=== PATIENT | male | born 1960 | race American Indian/Alaskan Native ===

== ENCOUNTER 2017-11-27 20:42 | Emergency (ER) | payer MEDICARE ==
[2017-11-27 20:55] VITALS: BP 100/70
--- NOTE | 2017-11-27 22:43 | XRay Report ---
FINAL REPORT PROCEDURE: XR HUMERUS 2+V RT TECHNIQUE: Right humerus, two views HISTORY: right humerus and elbow pain COMPARISON: No prior studies are available for comparison. FINDINGS: Sclerosis noted in the mid humeral shaft may be related to the deltoid insertion. No focal osseous lesion is seen. No acute fracture or dislocation is seen. IMPRESSION: Ill-defined focal sclerosis is noted in the mid humeral shaft, which may be related to the deltoid insertion. If there is progressive pain, follow-up radiograph or MRI could be obtained to exclude an other etiology for the sclerosis. No acute fracture is seen.
--- NOTE | 2017-11-28 00:58 | Emergency Department Report ---
ED Upper Extremity Inj HPI - General Chief Complaint: Extremity Injury, Upper Stated Complaint: A FALLING BED RAIL/ HIT WITH Time Seen by Provider: 11/27/17 23:51 Source: patient Mode of arrival: Ambulatory Limitations: No Limitations - History of Present Illness Initial Comments: Patient is a 57-year-old -[place] male who presents for right upper arm pain patient states bed rail fell from distance proximally 4-5 feet striking him on his posterior humerus pain and tenderness since is approximately 7 hours ago pain described as 5/10 aching soreness exacerbated by movement there is no numbness no tingling no deformity no swelling Complaint: Injury to:: right, arm Onset/Timin -: hour(s) Other Extremity Injury: Arm: Right Other Injuries: none Place: other (in store ) Severity scale (0 -10): 4 Improves With: none Worsens With: movement of extremity Context: direct blow Associated Symptoms: other (tenderness ) - Related Data Home Medications Medication Instructions Recorded Confirmed Last Taken Atenolol [Tenormin] 25 mg PO DAILY 11/14/14 11/14/14 11/13/14 Famotidine [Pepcid] 20 mg PO BID 11/14/14 11/14/14 11/09/14 Isosorbide Dinitrate 60 mg PO BID 11/14/14 11/14/14 11/13/14 Lisinopril 5 mg PO 11/14/14 11/14/14 11/13/14 Previous Rx's Medication Instructions Recorded Last Taken Type Naproxen [Naprosyn TAB] 500 mg PO BID #30 tablet 11/28/17 Unknown Rx Allergies Allergy/AdvReac Type Severity Reaction Status Date / Time No Known Allergies Allergy Verified 02/04/14 04:42 ED Review of Systems ROS: Stated complaint: A FALLING BED RAIL/ HIT WITH Other details as noted in HPI Constitutional: denies: chills, fever Eyes: denies: eye pain, eye discharge, vision change ENT: denies: ear pain, throat pain Respiratory: denies: cough, shortness of breath, wheezing Cardiovascular: denies: chest pain, palpitations Endocrine: no symptoms reported Gastrointestinal: denies: abdominal pain, nausea, diarrhea Genitourinary: denies: urgency, dysuria Musculoskeletal: myalgia. denies: back pain, joint swelling Skin: denies: rash, lesions Neurological: denies: headache, weakness, paresthesias Psychiatric: denies: anxiety, depression Hematological/Lymphatic: denies: easy bleeding, easy bruising ED Past Medical Hx - Past Medical History Hx Hypertension: Yes (2006 [facility]) Hx Heart Attack/AMI: Yes (2006) Additional medical history: irregular heart rate, high cholesterol - Surgical History Hx Coronary Stent: Yes (2006) Additional Surgical History: 2 cardiac stents 2006, hernia repair - Social History Smoking Status: Never Smoker Substance Use Type: None - Medications Home Medications: Home Medications Medication Instructions Recorded Confirmed Last Taken Type Atenolol [Tenormin] 25 mg PO DAILY 11/14/14 11/14/14 11/13/14 History Famotidine [Pepcid] 20 mg PO BID 11/14/14 11/14/14 11/09/14 History Isosorbide Dinitrate 60 mg PO BID 11/14/14 11/14/14 11/13/14 History Lisinopril 5 mg PO 11/14/14 11/14/14 11/13/14 History Naproxen [Naprosyn TAB] 500 mg PO BID #30 tablet 11/28/17 Unknown Rx ED Physical Exam - General Limitations: No Limitations General appearance: alert, in no apparent distress - Head Head exam: Present: atraumatic, normocephalic - Eye Eye exam: Present: normal appearance - ENT ENT exam: Present: mucous membranes moist - Neck Neck exam: Present: normal inspection - Respiratory Respiratory exam: Present: normal lung sounds bilaterally. Absent: respiratory distress - Cardiovascular Cardiovascular Exam: Present: regular rate, normal rhythm. Absent: systolic murmur, diastolic murmur, rubs, gallop - GI/Abdominal GI/Abdominal exam: Present: soft, normal bowel sounds. Absent: distended, tenderness, guarding, rebound, rigid, mass, bruit, pulsatile mass, hernia - Rectal Rectal exam: Present: deferred - Extremities Exam Extremities exam: Present: full ROM, tenderness (right posterior upper arm pain mild bruising ), normal capillary refill. Absent: pedal edema, joint swelling, calf tenderness - Expanded Upper Extremity Exam Right Shoulder Exam: Present: normal inspection, full ROM. Absent: tenderness, swelling Upper Arm exam: Present: full ROM, tenderness, ecchymosis. Absent: swelling, abrasion, laceration, deformity, crepidus, dislocation, erythema Elbow exam: Present: normal inspection, full ROM. Absent: tenderness, swelling , abrasion, laceration, ecchymosis, deformity, crepidus, dislocation, erythema, effusion, pain w/ pronation/supination, tenderness over radial head Forearm Wrist exam: Present: normal inspection, full ROM. Absent: tenderness Hand Wrist exam: Present: normal inspection, full ROM. Absent: tenderness Neuro motor exam: Present: wrist extension intact, thumb opposition intact, thumb IP flexion intact, thumb adduction intact, fingers 2-5 abduction intact Neurosensory exam: Present: 2-point discrimination, radial nerve intact, ulnar nerve intact, median nerve intact Vascular: Present: normal capillary refill, radial pulse, brachial pulse, ulnar pulse. Absent: vascular compromise, Pallo, pulse deficit radial art, pulse deficit ulnar art, pulse deficit brachial art - Back Exam Back exam: Present: normal inspection, full ROM. Absent: tenderness, CVA tenderness (R), CVA tenderness (L), muscle spasm, rash noted - Neurological Exam Neurological exam: Present: alert, oriented X3, CN II-XII intact, normal gait, reflexes normal. Absent: motor sensory deficit - Psychiatric Psychiatric exam: Present: normal affect, normal mood, anxious - Skin Skin exam: Present: warm, dry, intact, normal color. Absent: rash ED Course Vital Signs 11/27/17 20:50 Temperature 98.3 F Pulse Rate 90 Respiratory 18 Rate Blood Pressure 100/70 O2 Sat by Pulse 96 Oximetry ED Medical Decision Making - Radiology Data Radiology results: report reviewed, image reviewed Ill -defined focal sclerois is noteed in the mid-humeral lshaft no acute fracture. 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 ED Disposition Clinical Impression: Contusion, arm, upper Qualifiers: Encounter type: initial encounter Laterality: right Qualified Code(s): S40.021A - Contusion of right upper arm, initial encounter Disposition: DC-01 TO HOME OR SELFCARE Is pt being admited?: No Does the pt Need Aspirin: No Condition: Good Instructions: Contusion in Adults (ED) Prescriptions: Naproxen [Naprosyn TAB] 500 mg PO BID #30 tablet Referrals: YOUSUF SALDIVAR MD [Staff Physician] - 3-5 Days Forms: Work/School Release Form(ED) Time of Disposition: 01:04
== END 2017-11-28 00:54 | disposition home or self-care (01) ==
LOC: ED 20:42
DX: S40.021A Contusion of right upper arm, initial encounter (principal); I10 Essential (primary) hypertension; W06.XXXA Fall from bed, initial encounter; Y93.89 Activity, other specified; Y92.89 Other specified places as the place of occurrence of the external cause; Y99.8 Other external cause status
CPT/HCPCS: 99283

== ENCOUNTER 2018-11-17 19:16 | Emergency (ER) | payer MEDICARE ==
[2018-11-17 19:29] VITALS: BP 110/69
[2018-11-17] MEDS ORDERED: NACL 0.9% 1000 ML 1,000 ML IV ONE (19:51)
[2018-11-17] MEDS ORDERED: ZOFRAN IV ONE (19:51)
[2018-11-17] MEDS ORDERED: TORADOL IV ONE (19:51)
[2018-11-17 20:25] LABS: Basophils # (Auto) 0.1 K/mm3 (0.0-0.1); Basophils % (Auto) 1.5 % (0.0-1.8); Eosinophils # (Auto) 0.2 K/mm3 (0.0-0.4); Eosinophils % (Auto) 4.6 % (0.0-4.3); Hemoglobin 14.8 gm/dl (11.8-15.2); Lymphocytes # (Auto) 2.3 K/mm3 (1.2-5.4); Lymphocytes % (Auto) 49.4 % (13.4-35.0); Mean Corpuscular HGB Conc 34 % (32-34); Mean Corpuscular Volume 98 fl (84-94); Monocytes # (Auto) 0.4 K/mm3 (0.0-0.8); Monocytes % (Auto) 8.3 % (0.0-7.3); Platelet Count 234 K/mm3 (140-440); Red Cell Distribution Width 12.9 % (13.2-15.2)
[2018-11-17 20:35] LABS: Alanine Aminotransferase 11 units/L (7-56); Albumin 4.4 g/dL (3.9-5); BUN/Creatinine Ratio 11; Blood Urea Nitrogen 10 mg/dL (9-20); Calcium 8.7 mg/dL (8.4-10.2); Hemolysis Index 62
[2018-11-17 20:36] LABS: INR 1.07 (0.87-1.13)
[2018-11-17 20:37] LABS: Partial Thromboplastin Time 30.1 Sec. (24.2-36.6)
--- NOTE | 2018-11-17 20:59 | Emergency Department Report ---
ED Abdominal Pain HPI - General Chief Complaint: Abdominal Pain Stated Complaint: GAS PAIN Time Seen by Provider: 11/17/18 19:52 Source: patient Mode of arrival: Ambulatory Limitations: No Limitations - History of Present Illness Initial Comments: There is a 58 Emergency room presents for right upper quadrant pain radiating to back times one week with intermittent nausea vomiting history of GERD denies EtOH denies smoking does have a cardiac history does have a history of hypertension last bowel movement was yesterday there is no shortness of breath no dizziness no lightheadedness no rectal bleeding no bloody or tarry stools. Symptoms are temporarily relieved by Yeimi EPPS Complaint: abdominal pain Onset/Timin -: week(s) Location: RUQ Radiation: R flank Migration to: RUQ Severity: moderate Severity scale (0 -10): 6 Quality: aching Consistency: constant Improves With: other (maalox ) Worsens With: movement Associated Symptoms: nausea, vomiting - Related Data Home Medications Medication Instructions Recorded Confirmed Last Taken Atenolol [Tenormin] 50 mg PO DAILY 11/14/14 11/17/18 1 Day Ago ~11/16/18 Famotidine [Pepcid] 20 mg PO BID 11/14/14 11/17/18 1 Day Ago ~11/16/18 Isosorbide Dinitrate 60 mg PO BID 11/14/14 11/17/18 1 Day Ago ~11/16/18 Lisinopril 2.5 mg PO 11/14/14 11/14/14 11/17/18 Rivaroxaban [Xarelto] 15 mg PO QDAY 11/17/18 11/17/18 1 Day Ago ~11/16/18 Previous Rx's Medication Instructions Recorded Last Taken Type Naproxen 500 mg PO BID PRN #30 tablet 11/17/18 Unknown Rx Omeprazole 40 mg PO DAILY #30 capsule. 11/17/18 Unknown Rx Sucralfate [Carafate] 1 gm PO ACHS 7 Days #28 tablet 11/17/18 Unknown Rx Allergies Allergy/AdvReac Type Severity Reaction Status Date / Time No Known Allergies Allergy Verified 02/04/14 04:42 ED Review of Systems ROS: Stated complaint: GAS PAIN Other details as noted in HPI Constitutional: denies: chills, fever Eyes: denies: eye pain, eye discharge, vision change ENT: denies: ear pain, throat pain Respiratory: denies: cough, shortness of breath, wheezing Cardiovascular: denies: chest pain, palpitations Endocrine: no symptoms reported Gastrointestinal: abdominal pain, nausea, vomiting. denies: diarrhea, constipation, hematemesis, melena, hematochezia Genitourinary: denies: urgency, dysuria Musculoskeletal: back pain. denies: joint swelling, arthralgia Skin: denies: rash, lesions Neurological: denies: headache, weakness, paresthesias Psychiatric: denies: anxiety, depression Hematological/Lymphatic: denies: easy bleeding, easy bruising ED Past Medical Hx - Past Medical History Hx Hypertension: Yes (2006 [facility]) Hx Heart Attack/AMI: Yes (2006) Hx GERD: Yes Additional medical history: A-fib, high cholesterol - Surgical History Hx Coronary Stent: Yes (2006) Additional Surgical History: 2 cardiac stents 2006, hernia repair - Social History Smoking Status: Never Smoker Substance Use Type: None - Medications Home Medications: Home Medications Medication Instructions Recorded Confirmed Last Taken Type Atenolol [Tenormin] 50 mg PO DAILY 11/14/14 11/17/18 1 Day Ago History ~11/16/18 Famotidine [Pepcid] 20 mg PO BID 11/14/14 11/17/18 1 Day Ago History ~11/16/18 Isosorbide Dinitrate 60 mg PO BID 11/14/14 11/17/18 1 Day Ago History ~11/16/18 Lisinopril 2.5 mg PO 11/14/14 11/14/14 11/17/18 History Naproxen 500 mg PO BID PRN #30 tablet 11/17/18 Unknown Rx Omeprazole 40 mg PO DAILY #30 capsule. 11/17/18 Unknown Rx Rivaroxaban [Xarelto] 15 mg PO QDAY 11/17/18 11/17/18 1 Day Ago History ~11/16/18 Sucralfate [Carafate] 1 gm PO ACHS 7 Days #28 tablet 11/17/18 Unknown Rx ED Physical Exam - General Limitations: No Limitations General appearance: alert, in no apparent distress - Head Head exam: Present: atraumatic, normocephalic - Eye Eye exam: Present: normal appearance, PERRL, EOMI Pupils: Present: normal accommodation - ENT ENT exam: Present: mucous membranes moist - Neck Neck exam: Present: normal inspection, full ROM. Absent: lymphadenopathy, thyromegaly - Respiratory Respiratory exam: Present: normal lung sounds bilaterally. Absent: respiratory distress, wheezes, stridor, chest wall tenderness - Cardiovascular Cardiovascular Exam: Present: regular rate, normal rhythm, normal heart sounds. Absent: systolic murmur, diastolic murmur, rubs, gallop - GI/Abdominal GI/Abdominal exam: Present: soft, tenderness (RUQ ), normal bowel sounds. Absent: guarding, rebound, bruit, hernia - Rectal Rectal exam: Present: deferred - Extremities Exam Extremities exam: Present: normal inspection - Back Exam Back exam: Present: normal inspection. Absent: full ROM, tenderness, CVA tenderness (R), CVA tenderness (L), muscle spasm, paraspinal tenderness, vertebral tenderness, rash noted - Neurological Exam Neurological exam: Present: alert, oriented X3 - Psychiatric Psychiatric exam: Present: normal affect, normal mood - Skin Skin exam: Present: warm, dry, intact, normal color. Absent: rash ED Course Vital Signs 11/17/18 19:25 Temperature 97.8 F Pulse Rate 88 Respiratory 16 Rate Blood Pressure 110/69 O2 Sat by Pulse 100 Oximetry ED Medical Decision Making - Lab Data Result diagrams: 11/17/18 Unknown 11/17/18 Unknown Labs 11/17/18 11/17/18 11/17/18 21:08 Unknown Unknown WBC 4.7 RBC 4.50 Hgb 14.8 Hct 44.0 MCV 98 H MCH 33 H MCHC 34 RDW 12.9 L Plt Count 234 Lymph % (Auto) 49.4 H Kay % (Auto) 8.3 H Eos % (Auto) 4.6 H Baso % (Auto) 1.5 Lymph # 2.3 Kay # 0.4 Eos # 0.2 Baso # 0.1 Seg Neutrophils % 36.2 L Seg Neutrophils # 1.7 L PT 14.3 INR 1.07 APTT 30.1 Sodium Potassium Chloride Carbon Dioxide Anion Gap BUN Creatinine Estimated GFR BUN/Creatinine Ratio Glucose Calcium Total Bilirubin AST ALT Alkaline Phosphatase Total Protein Albumin Albumin/Globulin Ratio Lipase Urine Color Yellow Urine Turbidity Clear Urine pH 5.0 Ur Specific [place] 1.038 H Urine Protein <15 mg/dl Urine Glucose (UA) Neg Urine Ketones Neg Urine Blood Neg Urine Nitrite Neg Urine Bilirubin Neg Urine Urobilinogen 2.0 Ur Leukocyte Esterase Neg Urine WBC (Auto) < 1.0 Urine RBC (Auto) 1.0 11/17/18 Unknown WBC RBC Hgb Hct MCV MCH MCHC RDW Plt Count Lymph % (Auto) Kay % (Auto) Eos % (Auto) Baso % (Auto) Lymph # Kay # Eos # Baso # Seg Neutrophils % Seg Neutrophils # PT INR APTT Sodium 141 Potassium 4.4 Chloride 104.4 Carbon Dioxide 27 Anion Gap 14 BUN 10 Creatinine 0.9 Estimated GFR > 60 BUN/Creatinine Ratio 11 Glucose 100 Calcium 8.7 Total Bilirubin 0.20 AST 18 ALT 11 Alkaline Phosphatase 117 Total Protein 6.7 Albumin 4.4 Albumin/Globulin Ratio 1.9 Lipase 65 H Urine Color Urine Turbidity Urine pH Ur Specific [place] Urine Protein Urine Glucose (UA) Urine Ketones Urine Blood Urine Nitrite Urine Bilirubin Urine Urobilinogen Ur Leukocyte Esterase Urine WBC (Auto) Urine RBC (Auto) - Radiology Data Radiology results: report reviewed, image reviewed Findings [facility] [address] [place] [address] Cat Scan Report Signed Patient: MIKE JULES MR#: [id number] : 1960 Acct:[id number] Age/Sex: 58 / M ADM Date: 11/17/18 Loc: ED Attending Dr: Ordering Physician: DELIA RAMOS NP Date of Service: 11/17/18 Procedure(s): CT abdomen pelvis w con Accession Number(s): [id number] cc: DELIA RAMOS NP FINAL REPORT EXAM: CT ABDOMEN PELVIS W CON HISTORY: Rt sided abdominal pain radiating to his back. No hx of stones or surgeries. Pain x 3 days. Gave 100 ml Omni 300. TECHNIQUE: Dynamic helical CT scan through the abdomen and pelvis during and again after ingestion of oral contrast and during intravenous injection of iodinated contrast. Images are reconstructed in the sagittal and coronal planes. PRIORS: None. FINDINGS: Images through the lower thorax show calcified right hilar lymph nodes consistent with old granulomatous disease. There is a 2 mm calcified granuloma in the left lower lobe. Otherwise, the lungs are clear. The liver, gallbladder, pancreas, spleen and adrenal glands appear normal. There are 2 cysts in the right kidney measuring 11 and 6 mm. The prostate is enlarged measuring 5.7 x 4.0 cm. The bladder appears grossly normal. The stomach appears grossly within normal limits. There are no abnormally dilated loops of bowel or acute inflammatory changes. A normal-appearing appendix is identified. There is diffuse atherosclerotic calcification in the abdominal aorta without aneurysm. 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 There is degenerative disc disease of the lumbar spine with vacuum disc from L L3-4 through L5-S1. IMPRESSION: 1. No acute findings in the abdomen/pelvis 2. Evidence of old granulomatous disease 3. 2 small cysts in the left kidney 4. Prostatic hypertrophy 5. Atherosclerosis 6. Degenerative changes of the spine and hips Transcribed By: DARWIN Dictated By: JOHN ABDULLAHI MD Electronically Authenticated By: JOHN ABDULLAHI MD Signed Date/Time: 11/17/18 3290 - Medical Decision Making CT noted renal cyst , or else arthralgia no gallstones no renal stones structures plan restart PPI for GERD centimeter with PCP in 2-3 days return to ED should symptoms worsen patient advises that pain is resolved to 0 /10 at this time medications given in ED there is no chest pain or shortness of shortness of breath no nausea vomiting patient verbalizes agreement and understanding of discharge plan patient DC'd home in stable condition at this time Critical care attestation.: If time is entered above; I have spent that time in minutes in the direct care of this critically ill patient, excluding procedure time. ED Disposition Clinical Impression: Renal cyst Abdominal pain Qualifiers: Abdominal location: generalized Qualified Code(s): R10.84 - Generalized abdominal pain Arthralgia Qualifiers: Joint pain location: unspecified Qualified Code(s): M25.50 - Pain in unspecified joint GERD (gastroesophageal reflux disease) Qualifiers: Esophagitis presence: without esophagitis Qualified Code(s): K21.9 - Gastro- esophageal reflux disease without esophagitis Disposition: DC-01 TO HOME OR SELFCARE Is pt being admited?: No Does the pt Need Aspirin: No Condition: Stable Instructions: Diet for Ulcers and Gastritis (ED), Gastroesophageal Reflux Disea se (ED), Arthralgia (ED), Flank Pain (ED) Prescriptions: Naproxen 500 mg PO BID PRN #30 tablet PRN Reason: pain Omeprazole 40 mg PO DAILY #30 capsule. Sucralfarandi [Carafate] 1 gm PO ACHS 7 Days #28 tablet Referrals: PRIMARY CARE, [Primary Care Provider] - 3-5 Days Forms: Work/School Release Form(ED) Time of Disposition: 22:04
[2018-11-17 21:44] LABS: Bilirubin,Urine NEG (Negative); Blood,Urine NEG (Negative); Color,Urine Yellow (Yellow); Protein,Urine <15 mg/dL mg/dL (Negative); WBC,Urine < 1.0 /HPF (0.0-6.0)
--- NOTE | 2018-11-17 21:46 | Cat Scan Report ---
FINAL REPORT EXAM: CT ABDOMEN PELVIS W CON HISTORY: Rt sided abdominal pain radiating to his back. No hx of stones or surgeries. Pain x 3 days. Gave 100 ml Omni 300. TECHNIQUE: Dynamic helical CT scan through the abdomen and pelvis during and again after ingestion o f oral contrast and during intravenous injection of iodinated contrast. Images are reconstructed in t he sagittal and coronal planes. PRIORS: None. FINDINGS: Images through the lower thorax show calcified right hilar lymph nodes consistent with old granulomat ous disease. There is a 2 mm calcified granuloma in the left lower lobe. Otherwise, the lungs are piper ar. The liver, gallbladder, pancreas, spleen and adrenal glands appear normal. There are 2 cysts in the right kidney measuring 11 and 6 mm. The prostate is enlarged measuring 5.7 x 4.0 cm. The bladder appears grossly normal. The stomach appears grossly within normal limits. There are no abnormally dilated loops of bowel or acute inflammatory changes. A normal-appearing appe ndix is identified. There is diffuse atherosclerotic calcification in the abdominal aorta without aneurysm. 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 There is degenerative disc disease of the lumbar spine wi th vacuum disc from L L3-4 through L5-S1. IMPRESSION: 1. No acute findings in the abdomen/pelvis 2. Evidence of old granulomatous disease 3. 2 small cysts in the left kidney 4. Prostatic hypertrophy 5. Atherosclerosis 6. Degenerative changes of the spine and hips
== END 2018-11-17 22:13 | disposition home or self-care (01) ==
LOC: ED 19:16
DX: K21.9 Gastro-esophageal reflux disease without esophagitis (principal); M25.50 Pain in unspecified joint; N28.1 Cyst of kidney, acquired; I10 Essential (primary) hypertension; E78.00 Pure hypercholesterolemia, unspecified; I25.2 Old myocardial infarction; I48.91 Unspecified atrial fibrillation; Z95.818 Presence of other cardiac implants and grafts; Z79.899 Other long term (current) drug therapy
CPT/HCPCS: 36415; 74177; 80053; 81001; 83690; 85025; 85610; 85730; 96361; 96374; 96375; 99284; J1885; J2405; J7030; Q9967